=== PATIENT | female | born 1940 | race African-American/Black ===

== ENCOUNTER 2016-09-02 21:07 | Inpatient (IN) | payer MEDICARE, OTHER ==
[~2016-09-02] VITALS: Ht 165.1 cm; Wt 104.5 kg
[~2016-09-02 21:07] MED LIST: ALLO100T PO; AMLO10 PO; BISA10R PR; CARB0.5D16 EACH EYE; CIPR500T2 PO; CRAN450T PO; DIAZ5 PO; LACO100 PO; LEVE250 PO; LOPE2TAB3 PO; NEUR600T PO; SERO50TA PO; SYNT125T PO; TRAZ50TA4 PO
[2016-09-02] MEDS ORDERED: SODIUM CHLORIDE 0.9% FLUSH 10 ML FLUSH IV FLUSH PRN (21:45)
[2016-09-02 21:46] VITALS: BP 152/70; PULSE 75; RESP 12; TEMP 98.2; O2SAT 97
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
[2016-09-02 22:00] VITALS: BP 137/63; PULSE 76; RESP 16; O2SAT 95
[2016-09-02 22:12] LABS: AUTOMATED NEUTROPHIL # 6.5 TH/MM3 (1.8-7.7); BASOPHIL % 0.3 % (0.0-2.0); EOSINOPHIL # 0.1 TH/MM3 (0-0.4); EOSINOPHIL % 1.1 % (0.0-4.0); HEMATOCRIT 40.6 % (35.0-46.0); HEMO FLAGS DIFF FINAL; LYMPH % 21.1 % (9.0-44.0); MEAN CELL VOLUME 90.3 FL (80.0-100.0); MEAN CORPUSCULAR HEMOGLOBIN 31.6 PG (27.0-34.0); MONO % 7.5 % (0.0-8.0); PLATELET COUNT 154 TH/MM3 (150-450); RED BLOOD COUNT 4.49 MIL/MM3 (4.00-5.30); WHITE BLOOD COUNT 9.3 TH/MM3 (4.0-11.0)
--- NOTE | 2016-09-02 22:16 | PD ---
Physical Exam Narrative General: The patient is a well-developed well-nourished female in no acute distress. The patient is drowsy on my arrival to room. The patient reportedly did receive some tramadol for pain prior to arrival. Head and Neck exam: Head is normocephalic atraumatic. Eyes: The patient is uncooperative with extraocular motion testing. Pupils are equal round and reactive to light. Nose: Midline septum with pink mucous membranes Mouth: When attempting to examine the patient's mouth. The patient clenches her lips and mouth shut. Neck: No palpable lymphadenopathy. No nuchal rigidity. No thyromegaly. Cardiovascular: Regular rate and rhythm without murmurs, gallops, or rubs. Lungs: Clear to auscultation bilaterally. No wheezes, rhonchi, or rales. Abdomen: Soft, with tenderness on palpation in the right lower quadrant suprapubic area, no other tenderness on palpation of the other quadrants of the abdomen. No guarding, rebound, or rigidity. Normal bowel sounds are audible. No tenderness on palpation specifically over McBurney's point. Negative [place] sign. Extremities: No clubbing or cyanosis. The patient does have trace pedal edema. 2+ pulses in all 4 extremities. No calf tenderness on palpation. Back: No costovertebral angle tenderness to palpation. Neurologic Exam: Grossly nonfocal. Skin Exam: No rash noted. Intact skin that is warm and dry. Data Data Last Documented VS Vital Signs Date Time Temp Pulse Resp B/P Pulse Ox O2 Delivery O2 Flow Rate FiO2 09/03/16 00:00 73 16 136/66 95 Room Air 09/02/16 21:46 98.2 Orders Type And Screen (09/02/16 21:41) Complete Blood Count With Diff (09/02/16 21:41) Comprehensive Metabolic Panel (09/02/16 21:41) Lipase (09/02/16 21:41) Prothrombin Time / Inr (Pt) (09/02/16 21:41) Act Partial Throm Time (Ptt) (09/02/16 21:41) Urinalysis - C+S If Indicated (09/02/16 21:41) Iv Access Insert/Monitor (09/02/16 21:41) Ecg Monitoring (09/02/16 21:41) Oximetry (09/02/16 21:41) Sodium Chloride 0.9% Flush (Ns Flush) (09/02/16 21:45) Cath For Specimen (09/02/16 21:41) Ct Abd/Pel W/O Iv Contrast (09/02/16 21:41) Admit Order (Ed Use Only) (09/03/16 00:11) Ciprofloxacin 400 Mg Premix (Cipro 400 M (09/03/16 01:00) Metronidazole 500 Mg Inj (Flagyl 500 Mg (09/03/16 02:00) Admit To Inpatient (09/03/16 ) Vital Signs (Adult) Q4H (09/03/16 00:01) Activity Oob With Assistance (09/03/16 00:01) Intake + Output DONG.QSHIFT (09/03/16 00:01) Diet Regular Basic (09/03/16 Breakfast) Sodium Chloride 0.9% Flush (Ns Flush) (09/03/16 00:15) Sodium Chloride 0.9% Flush (Ns Flush) (09/03/16 09:00) Ondansetron Inj (Zofran Inj) (09/03/16 00:15) Comprehensive Metabolic Panel (09/04/16 06:00) Complete Blood Count With Diff (09/04/16 06:00) Pharmacologic Contraindication (09/03/16 00:01) Acetaminophen (Tylenol) (09/03/16 00:15) Acetamin-Hydrocod 325-5 Mg ([place] 5-325 (09/03/16 00:15) Morphine Inj (Morphine Inj) (09/03/16 00:15) Docusate Sodium-Senna (Tiffanie-Colace) (09/03/16 09:00) Magnesium Hydroxide Liq (Milk Of Magnesi (09/03/16 00:15) Sennosides (Senokot) (09/03/16 00:15) Bisacodyl Supp (Dulcolax Supp) (09/03/16 00:15) Lactulose Liq (Lactulose Liq) (09/03/16 00:15) Inpatient Certification (09/03/16 ) Case Management Consult (09/03/16 ) Allopurinol (Zyloprim) (09/03/16 09:00) Amlodipine (Norvasc) (09/03/16 09:00) Diazepam (Valium) (09/03/16 00:15) Gabapentin (Neurontin) (09/03/16 09:00) Lacosamide (Vimpat) (09/03/16 09:00) Levetiracetam (Keppra) (09/03/16 09:00) Levothyroxine (Synthroid) (09/03/16 06:00) Rivastigmine (Exelon) (09/03/16 09:00) Trazodone (Desyrel) (09/03/16 21:00) Quetiapine (Seroquel) (09/03/16 09:00) Labs Laboratory Tests Test 09/02/16 09/02/16 21:50 22:32 White Blood Count 9.3 TH/MM3 Red Blood Count 4.49 MIL/MM3 Hemoglobin 14.2 GM/DL Hematocrit 40.6 % Mean Corpuscular Volume 90.3 FL Mean Corpuscular Hemoglobin 31.6 PG Mean Corpuscular Hemoglobin 35.0 % Concent Red Cell Distribution Width 15.0 % Platelet Count 154 TH/MM3 Mean Platelet Volume 8.3 FL Neutrophils (%) (Auto) 70.0 % Lymphocytes (%) (Auto) 21.1 % Monocytes (%) (Auto) 7.5 % Eosinophils (%) (Auto) 1.1 % Basophils (%) (Auto) 0.3 % Neutrophils # (Auto) 6.5 TH/MM3 Lymphocytes # (Auto) 2.0 TH/MM3 Monocytes # (Auto) 0.7 TH/MM3 Eosinophils # (Auto) 0.1 TH/MM3 Basophils # (Auto) 0.0 TH/MM3 CBC Comment DIFF FINAL Differential Comment Prothrombin Time 10.7 SEC Prothromb Time International 1.0 RATIO Ratio Activated Partial 28.7 SEC Thromboplast Time Sodium Level 136 MEQ/L Potassium Level 4.4 MEQ/L Chloride Level 103 MEQ/L Carbon Dioxide Level 26.6 MEQ/L Anion Gap 6 MEQ/L Blood Urea Nitrogen 25 MG/DL Creatinine 1.85 MG/DL Estimat Glomerular Filtration 32 ML/MIN Rate Random Glucose 149 MG/DL Calcium Level 8.1 MG/DL Total Bilirubin 0.4 MG/DL Aspartate Amino Transf 18 U/L (AST/SGOT) Alanine Aminotransferase 14 U/L (ALT/SGPT) Alkaline Phosphatase 77 U/L Total Protein 8.1 GM/DL Albumin 3.3 GM/DL Lipase 99 U/L Blood Type O POSITIVE Antibody Screen NEGATIVE Urine Color YELLOW Urine Turbidity CLEAR Urine pH 5.5 Urine Specific [place] 1.015 Urine Protein NEG mg/dL Urine Glucose (UA) NEG mg/dL Urine Ketones NEG mg/dL Urine Occult Blood SMALL Urine Nitrite NEG Urine Bilirubin NEG Urine Urobilinogen LESS THAN 2.0 MG/DL Urine Leukocyte Esterase NEG Urine RBC 3 /hpf Urine WBC 1 /hpf Urine Squamous Epithelial 2 /hpf Cells Urine Mucus FEW /lpf Microscopic Urinalysis Comment CULT NOT INDICATED MDM Medical Record Reviewed: Yes Supervised Visit with DONTAE: Yes Interpretation(s) Last Impressions Abdomen/Pelvis CT 09/02/162140 Signed Impressions: Service Date/Time: Friday, September 02, 2016 22:57 - CONCLUSION: 1. Abnormal wall thickening and mild surrounding inflammatory change involving the descending colon and proximal sigmoid colon. Findings are characteristic of a colitis. 2. 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 3. There is a 2.2 cm lesion in the lower pole right kidney. It does not meet criteria for a cyst on this examination and is incompletely characterized. This could represent a hemorrhagic/proteinaceous cyst or a solid renal neoplasm. Ike Peralta MD Narrative Course I, Dr. Barragan, have reviewed the advance practice practitioner's documentation and am in agreement, met with the patient face to face, made the diagnosis, and the medical decision making was done by me. The patient was initially evaluated by Corona. Please see his complete history and physical. *My assessment and Findings: The patient is a 76-year-old female who was noted by her assisted living facility to have blood in her diaper yesterday. The patient was sent in for evaluation and treatment today. The patient on arrival is noted to be drowsy, however she did reportedly received tramadol for pain prior to arrival. The patient according to the alf record has a history of dementia. She is normally at baseline oriented only to person. The patient was evaluated initially by Corona. He did do a rectal examination that was grossly positive for blood. During the course of the patients emergency department visit, the patients history, examination, and differential diagnosis were reviewed with the patient. The patient had IV access obtained and blood work sent for analysis. The patient was placed on a dye box operator with oximetry and blood pressure monitoring. The patient was typed and crossmatched for blood administration if necessary. The patient's case was checked out to me at the conclusion of Corona shift. Patient was pending CT scan of the abdomen and pelvis results. The patients laboratory studies were reviewed and remarkable for a CBC that is within normal limits, CMP is remarkable for a BUN of 25, creatinine 1.85 in a patient with a history of similar renal insufficiency, glucose 149, calcium 8.1 , albumin 3.3, lipase 99, PT 10.7, PTT 28.7, urinalysis shows small occult blood , otherwise unremarkable with an RBC of 3 Radiology studies were reviewed and remarkable for a CT scan of the abdomen and pelvis that shows abnormal wall thickening and mild surrounding inflammatory changes involving the descending colon and proximal sigmoid colon findings are consistent for colitis. The patients results were discussed with the patient, including the plan of care. I explained that further testing and/ or monitoring is indicated based on the patients history, examination, and/ or laboratory findings. Therefore, I recommended admission for additional evaluation. The patient expressed understanding and was agreeable with this plan. The patient was admitted to the hospital in stable condition and sent to a bed under the care of the [facility]. Physician Communication Physician Communication The patient's case is discussed with Dr. Emmanuel who did agree to admit the patient for further evaluation and treatment at this time. Diagnosis Primary Impression: Colitis Additional Impression: GI bleed Qualified Code: K92.2 - Gastrointestinal hemorrhage, unspecified gastrointestinal hemorrhage type Admitting Information Admitting Physician Requests: Admit Sandra Barragan MD Sep 02, 2016 22:16
[2016-09-02 22:33] LABS: APTT (PATIENT) 28.7 SEC (24.3-30.1); PROTHROMBIN TIME - PATIENT 10.7 SEC (9.8-11.6)
[2016-09-02 22:34] LABS: ALT (GPT) 14 U/L (10-53)
[2016-09-02 22:35] LABS: ANION GAP 6 MEQ/L (5-15); AST (GOT) 18 U/L (15-37); BICARBONATE 26.6 MEQ/L (21.0-32.0); BLOOD UREA NITROGEN 25 MG/DL (7-18); CHLORIDE 103 MEQ/L (98-107); GLOMERULAR FILTRATION RATE 32 ML/MIN (>89); SODIUM (NA) 136 MEQ/L (136-145)
[2016-09-02 22:37] LABS: ALKALINE PHOSPHATASE 77 U/L (45-117); TOTAL BILIRUBIN ADULT 0.4 MG/DL (0.2-1.0)
[2016-09-02 22:38] VITALS: RESP 16; O2SAT 95
[2016-09-02 22:39] LABS: POTASSIUM 4.4 MEQ/L (3.5-5.1)
[2016-09-02 22:50] LABS: BLOOD, URINE SMALL (NEG); GLUCOSE,URINE NEG (NEG); KETONE, URINE NEG (NEG); MUCUS URINE FEW /lpf (OCC); NITRITE,URINE NEG (NEG); PH, URINE 5.5 (5.0-8.5); SQUAMOUS EPITHELIAL CELL URINE 2 /hpf (0-5); URINE COLOR YELLOW (YELLW/STRAW)
[2016-09-02 22:51] LABS: COMMENT (UR) CULT NOT INDICATED; CULTURE IF INDICATED CULT NOT INDICATED
[2016-09-02] MEDS ORDERED: DIAZ5TAB PO (22:54)
[2016-09-02] MEDS ORDERED: ALLO100T PO (22:54)
[2016-09-02] MEDS ORDERED: ROBIDM5S PO (22:54)
[2016-09-02] MEDS ORDERED: ZOFR4TAB PO (22:54)
[2016-09-02] MEDS ORDERED: PROT0.1O TOPICAL (22:54)
[2016-09-02] MEDS ORDERED: HYDR-3133 PO (22:54)
[2016-09-02] MEDS ORDERED: AMLO10TA2 PO (22:54)
[2016-09-02] MEDS ORDERED: RIVA1.5C PO (22:54)
[2016-09-02] MEDS ORDERED: LEVE250T5 PO (22:54)
[2016-09-02] MEDS ORDERED: LACO100 PO (22:54)
[2016-09-02] MEDS ORDERED: CRAN1TAB5 PO (22:54)
[2016-09-02] MEDS ORDERED: QUET5TAB PO (22:54)
[2016-09-02] MEDS ORDERED: GENTDRO EACH EYE (22:54)
[2016-09-02] MEDS ORDERED: LEVO.125 PO (22:54)
[2016-09-02] MEDS ORDERED: DOCU100C PO (22:54)
[2016-09-02] MEDS ORDERED: TRAZ50TA12 PO (22:54)
[2016-09-02] MEDS ORDERED: GABA600T PO (22:54)
--- NOTE | 2016-09-02 23:24 | RADRPT ---
EXAM DATE/TIME: 09/02/2016 22:57 [facility] COMPARISON: No previous studies available for comparison. INDICATIONS : Blood in stool. ORAL CONTRAST: No oral contrast ingested. RADIATION DOSE: 22.16 CTDIvol (mGy) MEDICAL HISTORY : Alzheimer's Dementia. CVA. Hypertension. Diabetes. SURGICAL HISTORY : Hysterectomy. Jaw surgery. ENCOUNTER: Initial ACUITY: 1 day PAIN SCALE: Non-responsive LOCATION: [facility] TECHNIQUE: Volumetric scanning of the abdomen and pelvis was performed. Using automated exposure control and ad justment of the mA and/or kV according to patient size, radiation dose was kept as low as reasonably achievable to obtain optimal diagnostic quality images. DICOM format image data is available electro nically for review and comparison. FINDINGS: Examination quality is degraded by patient arm position and respiratory motion artifact. LOWER LUNGS: The visualized lower lungs are clear. There is a small pericardial effusion. LIVER: Homogeneous density without lesion. There is no dilation of the biliary tree. No calcified gallston es. SPLEEN: Normal size without lesion. PANCREAS: Within normal limits. KIDNEYS: Kidneys are at the lower limits for normal in size. There is a hyperdense lesion at the lower pole th e right kidney measuring 2.2 cm. A 3.7 cm simple appearing cyst is present at the lower pole the left kidney. No hydronephrosis or stone is identified. ADRENAL GLANDS: Within normal limits. VASCULAR: There is moderate atherosclerotic disease with infrarenal aortic aneurysm measuring up to 3.2 cm. BOWEL/MESENTERY: The stomach and small bowel demonstrate no acute abnormality. There is sigmoid diverticulosis and th e descending and proximal sigmoid colon demonstrates suggestion of wall thickening and pericolonic in flammatory change. There is no free intraperitoneal air or fluid. ABDOMINAL WALL: Within normal limits. RETROPERITONEUM: There is no lymphadenopathy. BLADDER: No wall thickening or mass. REPRODUCTIVE: Uterus is absent. INGUINAL: There is no lymphadenopathy or hernia. MUSCULOSKELETAL: There are degenerative changes of the lumbar spine. CONCLUSION: 1. Abnormal wall thickening and mild surrounding inflammatory change involving the descending colon a nd proximal sigmoid colon. Findings are characteristic of a colitis. 2. 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 3. There is a 2.2 cm lesion in the lower pole right kidney. It does not meet criteria for a cyst on t his examination and is incompletely characterized. This could represent a hemorrhagic/proteinaceous c yst or a solid renal neoplasm. Ike Peralta MD on September 02, 2016 at 23:18 Board Certified Radiologist. This report was verified electronically.
[2016-09-03] VITALS (7 sets, daily range): BP systolic 107–136; BP diastolic 56–73; PULSE 73–84; RESP 16–24; TEMP 97.3–98.8; O2SAT 94–98
[2016-09-03] MEDS ORDERED: SODIUM CHLORIDE 0.9% FLUSH 10 ML FLUSH IV FLUSH PRN (00:15)
[2016-09-03] MEDS ORDERED: ACETAMINOPHEN 325 MG TAB PO PRN (00:15)
[2016-09-03] MEDS ORDERED: LACTULOSE SYRUP 20 GM/30 ML CUP PO PRN (00:15)
[2016-09-03] MEDS ORDERED: ONDANSETRON HCL 4 MG/2 ML VIAL IVP PRN (00:15)
[2016-09-03] MEDS ORDERED: BISACODYL 10 MG SUPP RECTAL PRN (00:15)
[2016-09-03] MEDS ORDERED: MAGNESIUM HYDROXIDE SUSP 30 ML CUP PO PRN (00:15)
[2016-09-03] MEDS ORDERED: SENNOSIDES 8.6 MG TAB PO PRN (00:15)
[2016-09-03] MEDS ORDERED: ACETAMINOPHEN/HYDROcodone 325 MG/5 MG TAB PO PRN (00:15)
[2016-09-03] MEDS ORDERED: MORPHINE SULFATE 4 MG/ML INJ IV PRN (00:15)
[2016-09-03] MEDS: metroNIDAZOLE 500 MG INJ 100 ML IV SCH ×3 (00:46→17:31)
[2016-09-03] MEDS: CIPROFLOXACIN 400 MG PREMIX 200 ML IV SCH ×2 (00:46→13:19)
--- NOTE | 2016-09-03 01:53 | HHI.HP ---
[facility] Primary Care Physician Bharat Albrecht MD Admission Diagnosis GI Bleed, colitis Diagnoses: (1) BRBPR (bright red blood per rectum) Diagnosis: Principal (2) Colitis Diagnosis: Principal (3) Seizure Diagnosis: Principal (4) Dementia Diagnosis: Principal Travel History International Travel<30 Days: No Contact w/Intl Traveler <30 Da: No Traveled to Known Affected Are: No History of Present Illness This is a 76-year-old female with a PMH of Dementia, HTN, Hyperlipidemia, Seizure Disorder and h/o CVA who was sent to the ER from [facility] for episode of BRBPR. Per report, pt was having her diaper changed when staff noted one episode of BRBPR. No h/o GI Bleed, not on anticoagulation. Pt poor historian, however no complaints at this time. On arrival, BP 152/70, HR 75, O2 sat 97% on RA, Afebrile. CBC unremarkable, Hemoglobin 14.2. Creatinine 1.85, previously 1.62 on 05/07/15. INR 1.0. UA negative. Hemoccult +. CT Abd/ Pelvis w/ evidence of colitis. Review of Systems Except as stated in HPI: all other systems reviewed are Neg ROS: 14 point review of systems otherwise negative. Past Family Social History Past Medical History PMH: Dementia, HTN, Hyperlipidemia, Seizure Disorder and h/o CVA Past Surgical History PAST SURGICAL HISTORY: Left Knee Replacement, Jaw Surgery, Hysterectomy Allergies: Coded Allergies: Keflex (Verified Allergy, Mild, ITCHING, 09/02/16) Sulfa (Verified Allergy, Mild, UNKNOWN, 09/02/16) Family History PAST FAMILY HISTORY: Reviewed. No h/o DM or CAD Social History PAST SOCIAL HISTORY: Negative for alcohol, tobacco or drugs. Physical Exam Vital Signs Vital Signs Date Time Temp Pulse Resp B/P Pulse Ox O2 Delivery O2 Flow Rate FiO2 09/03/16 01:22 97.9 78 18 132/67 97 09/03/16 00:00 73 16 136/66 95 Room Air 09/02/16 22:38 16 95 Room Air 09/02/16 22:00 76 16 137/63 95 Room Air 09/02/16 21:46 98.2 75 12 152/70 97 Physical Exam PE: GENERAL: Elderly black female in no acute distress, pleasantly demented. HEENT: PERRLA, EOMI. No scleral icterus or conjunctival pallor. No lid lag or facial droop. CARDIOVASCULAR: Regular rate and rhythm. No obvious murmurs to auscultation. No chest tenderness to palpation. RESPIRATORY: No obvious rhonchi or wheezing. Clear to auscultation. Breath sounds equal bilaterally. GASTROINTESTINAL: Abdomen soft, mild generalized tenderness to palpation, nondistended. BS normal. MUSCULOSKELETAL: Extremities without clubbing, cyanosis, or edema. No obvious deformities. NEUROLOGICAL: Awake, alert, opens eyes to name, answers minimal questions. No focal neurologic deficits. Moving both upper and lower extremities spontaneously. Laboratory Laboratory Tests Test 09/02/16 09/02/16 21:50 22:32 White Blood Count 9.3 Red Blood Count 4.49 Hemoglobin 14.2 Hematocrit 40.6 Mean Corpuscular Volume 90.3 Mean Corpuscular Hemoglobin 31.6 Mean Corpuscular Hemoglobin 35.0 Concent Red Cell Distribution Width 15.0 Platelet Count 154 Mean Platelet Volume 8.3 Neutrophils (%) (Auto) 70.0 Lymphocytes (%) (Auto) 21.1 Monocytes (%) (Auto) 7.5 Eosinophils (%) (Auto) 1.1 Basophils (%) (Auto) 0.3 Neutrophils # (Auto) 6.5 Lymphocytes # (Auto) 2.0 Monocytes # (Auto) 0.7 Eosinophils # (Auto) 0.1 Basophils # (Auto) 0.0 CBC Comment DIFF FINAL Differential Comment Prothrombin Time 10.7 Prothromb Time International 1.0 Ratio Activated Partial 28.7 Thromboplast Time Sodium Level 136 Potassium Level 4.4 Chloride Level 103 Carbon Dioxide Level 26.6 Anion Gap 6 Blood Urea Nitrogen 25 Creatinine 1.85 Estimat Glomerular Filtration 32 Rate Random Glucose 149 Calcium Level 8.1 Total Bilirubin 0.4 Aspartate Amino Transf 18 (AST/SGOT) Alanine Aminotransferase 14 (ALT/SGPT) Alkaline Phosphatase 77 Total Protein 8.1 Albumin 3.3 Lipase 99 Blood Type O POSITIVE Antibody Screen NEGATIVE Urine Color YELLOW Urine Turbidity CLEAR Urine pH 5.5 Urine Specific [place] 1.015 Urine Protein NEG Urine Glucose (UA) NEG Urine Ketones NEG Urine Occult Blood SMALL Urine Nitrite NEG Urine Bilirubin NEG Urine Urobilinogen LESS THAN 2.0 Urine Leukocyte Esterase NEG Urine RBC 3 Urine WBC 1 Urine Squamous Epithelial 2 Cells Urine Mucus FEW Microscopic Urinalysis Comment CULT NOT INDICATED Result Diagram: 09/02/16214909/02/162149 Assessment and Plan Problem List: (1) BRBPR (bright red blood per rectum) ICD Code: K62.5 Status: Acute (2) Colitis ICD Code: K52.9 Status: Acute (3) Seizure ICD Code: R56.9 Status: Chronic (4) Dementia ICD Code: F03.90 Status: Chronic Assessment and Plan A/P: 1. BRBPR: episode of BRBPR noted by staff at [facility], no h/o GI Bleed, not on anticoagulation. Hemoccult+ on exam. Hgb 14, hemodynamically stable, likely secondary to colitis/hemorrhoids. Will monitor Hgb/Hct, check repeat labs in am. 2. Colitis: CT Abd/Pelvis w/ abnormal wall thickening and surrounding inflammatory changes and descending colon and proximal sigmoid colon, consistent with colitis, images reviewed by me. Will start on treatment w/ Cipro/Flagyl. Analgesics/antiemetics as needed. 3. Seizure Disorder: Stable. No reported seizure activity. Resume home medications. 4. Dementia: At baseline per Daughter. Resume home medications. 5. DVT Prophylaxis: SCD/Teds. 6. Social work for d/c planning as needed 7. Case discussed w/ ER physician at length. Physician Certification 2 Midnight Certification Type: Admission for Inpatient Services Order for Inpatient Services The services are ordered in accordance with Medicare regulations or non- Medicare payer requirements, as applicable. In the case of services not specified as inpatient-only, they are appropriately provided as inpatient services in accordance with the 2-midnight benchmark. Estimated LOS (days): 2 days is the estimated time the patient will need to remain in the hospital, assuming treatment plan goals are met and no additional complications. Post-Hospital Plan: Not yet determined Fiona Emmanuel MD Sep 03, 2016 01:53
[2016-09-03] MEDS: LACOSAMIDE 100 MG TAB PO SCH ×3 (08:45→17:30)
[2016-09-03] MEDS: SODIUM CHLORIDE 0.9% FLUSH 10 ML FLUSH IV FLUSH SCH ×2 (08:46→20:38)
[2016-09-03] MEDS: DOCUSATE SODIUM 50 MG/SENNA 8.6 MG TAB PO SCH ×2 (08:46→20:38)
[2016-09-03] MEDS: RIVASTIGMINE TARTRATE 1.5 MG CAP PO SCH ×2 (08:46→17:30)
[2016-09-03] MEDS: ALLOPURINOL 100 MG TAB PO SCH (08:46)
[2016-09-03] MEDS: levETIRAcetam 250 MG TAB PO SCH ×4 (08:46→20:38)
[2016-09-03] MEDS: LEVOTHYROXINE SODIUM 125 MCG TAB PO SCH (08:46)
[2016-09-03] MEDS: QUEtiapine FUMARATE 25 MG TAB PO SCH ×3 (08:46→17:30)
[2016-09-03] MEDS ORDERED: GABAPENTIN 300 MG CAP PO SCH (09:00)
--- NOTE | 2016-09-03 16:34 | HHI.PR ---
Addendum to Inpatient Note Addendum Reason: Additional Documentation Additional Information Patient denies abdominal pain nausea vomiting. She is awake and alert, abdomen is soft, nontender, nondistended. By report per rectum secondary to colitis seen on CT abdomen and pelvis. Continue IV ciprofloxacin and Flagyl. As per daughter wasn't at bedside, no diarrhea previously. Patient has had problems with constipation instead. We'll consult GI for further recommendations. Beto Randle MD Sep 03, 2016 16:34
[2016-09-03] MEDS: traZODone HCL 50 MG TAB PO SCH (20:38)
[2016-09-04] VITALS (7 sets, daily range): BP systolic 122–182; BP diastolic 61–77; PULSE 74–80; RESP 18–20; TEMP 97.5–98.4; O2SAT 95–99
[2016-09-04] MEDS: CIPROFLOXACIN 400 MG PREMIX 200 ML IV SCH ×2 (00:31→14:23)
[2016-09-04] MEDS: metroNIDAZOLE 500 MG INJ 100 ML IV SCH ×3 (01:58→17:01)
[2016-09-04] MEDS: LEVOTHYROXINE SODIUM 125 MCG TAB PO SCH (05:01)
[2016-09-04] MEDS: SODIUM CHLORIDE 0.9% FLUSH 10 ML FLUSH IV FLUSH SCH ×2 (09:00→21:43)
[2016-09-04] MEDS: RIVASTIGMINE TARTRATE 1.5 MG CAP PO SCH ×2 (09:40→17:00)
[2016-09-04] MEDS: DOCUSATE SODIUM 50 MG/SENNA 8.6 MG TAB PO SCH ×2 (09:40→21:43)
[2016-09-04] MEDS: ALLOPURINOL 100 MG TAB PO SCH (09:40)
[2016-09-04] MEDS: GABAPENTIN 300 MG CAP PO SCH (09:40)
[2016-09-04] MEDS: LACOSAMIDE 100 MG TAB PO SCH ×3 (09:41→17:00)
[2016-09-04] MEDS: levETIRAcetam 250 MG TAB PO SCH ×4 (09:41→21:43)
[2016-09-04] MEDS: QUEtiapine FUMARATE 25 MG TAB PO SCH ×3 (09:41→17:00)
[2016-09-04 11:46] LABS: AUTOMATED NEUTROPHIL # 5.6 TH/MM3 (1.8-7.7); BASOPHIL % 0.2 % (0.0-2.0); EOSINOPHIL # 0.1 TH/MM3 (0-0.4); EOSINOPHIL % 1.3 % (0.0-4.0); HEMATOCRIT 40.3 % (35.0-46.0); HEMO FLAGS DIFF FINAL; LYMPH % 18.6 % (9.0-44.0); LYMPHOCYTE # 1.4 TH/MM3 (1.0-4.8); MEAN CELL VOLUME 91.4 FL (80.0-100.0); MEAN CORPUSCULAR HEMOGLOBIN 30.8 PG (27.0-34.0); MEAN CORPUSCULAR HGB CONC 33.7 % (32.0-36.0); MONO % 4.4 % (0.0-8.0); NEUT % 75.5 % (16.0-70.0); PLATELET COUNT 148 TH/MM3 (150-450); RED BLOOD COUNT 4.41 MIL/MM3 (4.00-5.30); RED CELL DISTRIBUTION WIDTH 14.9 % (11.6-17.2); WHITE BLOOD COUNT 7.5 TH/MM3 (4.0-11.0)
[2016-09-04 12:15] LABS: ANION GAP 6 MEQ/L (5-15); AST (GOT) 14 U/L (15-37); BLOOD UREA NITROGEN 21 MG/DL (7-18); CHLORIDE 104 MEQ/L (98-107); GLOMERULAR FILTRATION RATE 34 ML/MIN (>89); POTASSIUM 4.3 MEQ/L (3.5-5.1); SODIUM (NA) 138 MEQ/L (136-145)
--- NOTE | 2016-09-04 12:25 | HHI.PR ---
Objective Vitals Vital Signs Date Time Temp Pulse Resp B/P Pulse Ox O2 Delivery O2 Flow Rate FiO2 09/04/16 07:25 98.3 76 20 143/65 99 09/04/16 03:56 97.5 74 18 122/61 98 09/04/16 00:42 97.9 77 18 123/62 96 09/03/16 19:21 98.8 84 18 116/73 96 09/03/16 16:48 98.5 80 18 134/66 94 I/O 09/03/16 09/03/16 09/03/16 09/04/16 09/04/16 09/04/16 07:00 15:00 23:00 07:00 15:00 23:00 Intake Total 980 ml Balance 980 ml Intake Oral 480 ml IV Total 500 ml # Voids 3 Result Diagram: 09/04/16 1034 09/02/16 2150 A/P Problem List: (1) BRBPR (bright red blood per rectum) ICD Code: K62.5 Status: Acute (2) Colitis ICD Code: K52.9 Status: Acute (3) Seizure ICD Code: R56.9 Status: Chronic (4) Dementia ICD Code: F03.90 Status: Chronic Beto Randle MD Sep 04, 2016 12:25
[2016-09-04 12:28] LABS: ALKALINE PHOSPHATASE 66 U/L (45-117); ALT (GPT) 15 U/L (10-53); TOTAL BILIRUBIN ADULT 0.3 MG/DL (0.2-1.0)
--- NOTE | 2016-09-04 12:42 | HHI.PR ---
Subjective Remarks denies abdominal pain, nausea or vomiting denies fevers or chills Vital signs stable Hemoglobin stable Objective Vitals Vital Signs Date Time Temp Pulse Resp B/P Pulse Ox O2 Delivery O2 Flow Rate FiO2 09/04/16 12:25 79 20 182/77 97 09/04/16 07:25 98.3 76 20 143/65 99 09/04/16 03:56 97.5 74 18 122/61 98 09/04/16 00:42 97.9 77 18 123/62 96 09/03/16 19:21 98.8 84 18 116/73 96 09/03/16 16:48 98.5 80 18 134/66 94 I/O 09/03/16 09/03/16 09/03/16 09/04/16 09/04/16 09/04/16 06:59 14:59 22:59 06:59 14:59 22:59 Intake Total 980 ml Balance 980 ml Intake Oral 480 ml IV Total 500 ml # Voids 3 Result Diagram: 09/04/16 1034 09/04/16 1034 Imaging Last Impressions Abdomen/Pelvis CT 09/02/161 Signed Impressions: Service Date/Time: Friday, September 02, 2016 22:57 - CONCLUSION: 1. Abnormal wall thickening and mild surrounding inflammatory change involving the descending colon and proximal sigmoid colon. Findings are characteristic of a colitis. 2. 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 3. There is a 2.2 cm lesion in the lower pole right kidney. It does not meet criteria for a cyst on this examination and is incompletely characterized. This could represent a hemorrhagic/proteinaceous cyst or a solid renal neoplasm. Ike Peralta MD Objective Remarks Awake and alert and S1-S2 present, regular rate and rhythm Clear lungs bilaterally Abdomen soft, obese, nontender, nondistended, No edema in bilateral lower extremities Procedures None Medications and IVs Current Medications Medications (Trade) Dose Ordered Sig/Lola Route Start Time Stop Time Status Last Admin Ciprofloxacin/ Dextrose 200 ml @ 200 mls/hr Q12H IV 09/03/16 01:00 09/04/16 00:31 (Flagyl 500 Mg Inj) 100 ml @ 100 mls/hr Q8H IV 09/03/16 02:00 09/04/16 01:58 (NS Flush) 2 ml UNSCH PRN IV FLUSH 09/03/16 00:15 (NS Flush) 2 ml BID IV FLUSH 09/03/16 09:00 09/03/16 20:38 (Zofran Inj) 4 mg Q6H PRN IVP 09/03/16 00:15 (Tylenol) 650 mg Q6H PRN PO 09/03/16 00:15 ([place] 5-325 Mg) 1 tab Q4H PRN PO 09/03/16 00:15 (Morphine Inj) 2 mg Q3H PRN IV 09/03/16 00:15 (Tiffanie-Colace) 1 tab BID PO 09/03/16 09:00 09/04/16 09:40 (Milk Of Magnesia Liq) 30 ml Q12H PRN PO 09/03/16 00:15 (Senokot) 17.2 mg Q12H PRN PO 09/03/16 00:15 (Dulcolax Supp) 10 mg DAILY PRN RECTAL 09/03/16 00:15 (Lactulose Liq) 30 ml DAILY PRN PO 09/03/16 00:15 (Zyloprim) 100 mg DAILY PO 09/03/16 09:00 09/04/16 09:40 (Norvasc) 10 mg DAILY PO 09/03/16 09:00 09/04/16 09:41 (Valium) 5 mg BID PRN PO 09/03/16 00:15 (Vimpat) 100 mg TID PO 09/03/16 09:00 09/04/16 09:41 (Keppra) 250 mg QID PO 09/03/16 09:00 09/04/16 09:41 (Synthroid) 125 mcg DAILY@06 PO 09/03/16 06:00 09/04/16 05:01 (Exelon) 1.5 mg BIDPC PO 09/03/16 09:00 09/04/16 09:40 (Desyrel) 50 mg HS PO 09/03/16 21:00 09/03/16 20:38 (SEROquel) 50 mg TID PO 09/03/16 09:00 09/04/16 09:41 (Neurontin) 600 mg DAILY PO 09/04/16 09:00 09/04/16 09:40 A/P Problem List: (1) BRBPR (bright red blood per rectum) ICD Code: K62.5 Status: Acute (2) Colitis ICD Code: K52.9 Status: Acute (3) Seizure ICD Code: R56.9 Status: Chronic (4) Dementia ICD Code: F03.90 Status: Chronic Assessment and Plan 1. BRBPR: episode of BRBPR noted by staff at [facility], no h/o GI Bleed, not on anticoagulation. Hemoccult+ on exam. Hgb 14, hemodynamically stable, likely secondary to colitis/hemorrhoids. Will monitor Hgb/Hct, which has been stable. 09/04 hemoglobin has been stable. Continue to monitor H&H and consult gastroenterology. 2. Colitis: CT Abd/Pelvis w/ abnormal wall thickening and surrounding inflammatory changes and descending colon and proximal sigmoid colon, consistent with colitis, images reviewed by me. Continue treatment with Cipro/ Flagyl. Analgesics/antiemetics as needed. 3. Seizure Disorder: Stable. No reported seizure activity. Continue home medications which include Vimpat, Keppra. 4. Dementia: At baseline per Daughter. The new home medications which include Seroquel, trazodone. 5. Hypertension: BP seems to be stable. Continue amlodipine. 6. Hypothyroidism: Continue levothyroxine. 5. DVT Prophylaxis: SCD/Teds. Discharge Planning Chest pending GI evaluation and clearance. Beto Randle MD Sep 04, 2016 12:41
--- NOTE | 2016-09-04 13:45 | PD.CONS ---
HPI History of Present Illness This is a 76 year old female with hx dementia, HTN, seizures, CVA sent from [facility] for 1 x episode BRBPR seen during a diaper change. NO prior hx GIB. No n/v, abd pain, diarrhea, weight loss, reflux. She hasnt had BM in 3d but daughter says she usually goes after every meal. Hx obtained from daughter. Daughter says pt had colonoscopy in [place] possibly 1999, cannot recall findings. (Lindsay Sarmiento) PFSH Past Medical History PMH: Dementia, HTN, Hyperlipidemia, Seizure Disorder and h/o CVA Past Surgical History PAST SURGICAL HISTORY: Left Knee Replacement, Jaw Surgery, Hysterectomy (Lindsay Sarmiento) Coded Allergies: Keflex (Verified Allergy, Mild, ITCHING, 09/02/16) Sulfa (Verified Allergy, Mild, UNKNOWN, 09/02/16) Family History PAST FAMILY HISTORY: Reviewed. No h/o DM or CAD Social History PAST SOCIAL HISTORY: Negative for alcohol, tobacco or drugs. (Lindsay Sarmiento) Review of Systems ROS pt demented, noncontributory (Lindsay Sarmiento) GI Exam Vitals I&O Vital Signs Date Time Temp Pulse Resp B/P Pulse Ox O2 Delivery O2 Flow Rate FiO2 09/04/16 12:25 79 20 182/77 97 09/04/16 07:25 98.3 76 20 143/65 99 09/04/16 03:56 97.5 74 18 122/61 98 09/04/16 00:42 97.9 77 18 123/62 96 09/03/16 19:21 98.8 84 18 116/73 96 09/03/16 16:48 98.5 80 18 134/66 94 I/O 09/03/16 09/03/16 09/03/16 09/04/16 09/04/16 09/04/16 07:00 15:00 23:00 07:00 15:00 23:00 Intake Total 980 ml Balance 980 ml Intake Oral 480 ml IV Total 500 ml # Voids 3 Imaging Last Impressions Abdomen/Pelvis CT 09/02/16 6301 Signed Impressions: Service Date/Time: Friday, September 02, 2016 22:57 - CONCLUSION: 1. Abnormal wall thickening and mild surrounding inflammatory change involving the descending colon and proximal sigmoid colon. Findings are characteristic of a colitis. 2. 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 3. There is a 2.2 cm lesion in the lower pole right kidney. It does not meet criteria for a cyst on this examination and is incompletely characterized. This could represent a hemorrhagic/proteinaceous cyst or a solid renal neoplasm. Ike Peralta MD Laboratory Test 09/04/16 10:34 White Blood Count 7.5 TH/MM3 Red Blood Count 4.41 MIL/MM3 Hemoglobin 13.6 GM/DL Hematocrit 40.3 % Mean Corpuscular Volume 91.4 FL Mean Corpuscular Hemoglobin 30.8 PG Mean Corpuscular Hemoglobin 33.7 % Concent Red Cell Distribution Width 14.9 % Platelet Count 148 TH/MM3 Mean Platelet Volume 8.4 FL Neutrophils (%) (Auto) 75.5 % Lymphocytes (%) (Auto) 18.6 % Monocytes (%) (Auto) 4.4 % Eosinophils (%) (Auto) 1.3 % Basophils (%) (Auto) 0.2 % Neutrophils # (Auto) 5.6 TH/MM3 Lymphocytes # (Auto) 1.4 TH/MM3 Monocytes # (Auto) 0.3 TH/MM3 Eosinophils # (Auto) 0.1 TH/MM3 Basophils # (Auto) 0.0 TH/MM3 CBC Comment DIFF FINAL Differential Comment Sodium Level 138 MEQ/L Potassium Level 4.3 MEQ/L Chloride Level 104 MEQ/L Carbon Dioxide Level 28.0 MEQ/L Anion Gap 6 MEQ/L Blood Urea Nitrogen 21 MG/DL Creatinine 1.77 MG/DL Estimat Glomerular Filtration 34 ML/MIN Rate Random Glucose 157 MG/DL Calcium Level 8.4 MG/DL Total Bilirubin 0.3 MG/DL Aspartate Amino Transf 14 U/L (AST/SGOT) Alanine Aminotransferase 15 U/L (ALT/SGPT) Alkaline Phosphatase 66 U/L Total Protein 8.0 GM/DL Albumin 3.2 GM/DL Physical Examination HEENT: PERRL; atraumatic; no jaundice. CHEST: CTA CARDIAC: RRR +murmur ABDOMEN: Soft, nondistended, nontender; no hepatosplenomegaly; bowel sounds are present in all four quadrants. EXTREMITIES: No clubbing, cyanosis, or edema. SKIN: Normal; no rash; no jaundice. ASSET ANALYST: alert, oriented to self only (Lindsay Sarmiento) Assessment and Plan Plan ASSESSMENT - BRBPR - 1 x episode BRBPR seen at [facility] during diaper change. No black tarry stool, hx prior GIB. Pt poss had colonoscopy in [place] in 1999, no details provided. no anemia at this time. D/w daughter Shereen who is POA, agreeable to colonoscopy. PLAN - colonoscopy - obtain consents - clears - NPO after midnight - monitor HH - further recommendations to follow This pt seen by myself and Dr Bedoya and this note is written on his behalf ( Lindsay Sarmiento) Physician Comments Patient seen and examined Agree with above Continue with current supportive care Monitor labs Plan for colonoscopy tomorrow (Kevin Bedoya MD) Lindsay Sarmiento Sep 04, 2016 13:45 Kevin Bedoya MD Sep 04, 2016 22:28
[2016-09-04] MEDS ORDERED: PEG (High)/E-LYTE SOLN 4000 ML BTL PO ONE (16:00)
[2016-09-04] MEDS: traZODone HCL 50 MG TAB PO SCH (21:43)
[2016-09-05] VITALS (7 sets, daily range): BP systolic 131–153; BP diastolic 63–75; PULSE 70–89; RESP 17–21; TEMP 95.2–98.4; O2SAT 94–99
[2016-09-05] MEDS: metroNIDAZOLE 500 MG INJ 100 ML IV SCH ×3 (03:07→19:14)
[2016-09-05] MEDS: CIPROFLOXACIN 400 MG PREMIX 200 ML IV SCH ×2 (03:08→18:27)
[2016-09-05] MEDS: LEVOTHYROXINE SODIUM 125 MCG TAB PO SCH (06:41)
[2016-09-05] MEDS ORDERED: PROPOFOL 200 MG/20 ML AMP IV PUSH ONE (10:08)
--- NOTE | 2016-09-05 10:10 | PD.PROCEDR ---
GI Procedure REFERRING PHYSICIAN BRENT PROCEDURE PERFORMED Incomplete colonoscopy due to poor prep INDICATION FOR PROCEDURE Rectal bleeding PROCEDURE: The procedure, risks and benefits were discussed with Ms. Morales and informed consent was obtained. Anesthesia sedated her with Diprivan. She was placed in the left lateral decubitus position. Colonoscopy: The Pentax videoscope was introduced through the rectum and advanced to sigmoid. Retroflexion was performed in the rectum. Colonic prep was poor with solid stool seen throughout the rectum and sigmoid FINDINGS: What little colonic mucosa seen in the sigmoid and rectum was unremarkable there was too much solid stool and the procedure was terminated no blood was seen during this procedure ESTIMATED BLOOD LOSS: None SPECIMENS REMOVED: None COMPLICATIONS: None IMPRESSION: Incomplete colonoscopy due to poor prep Normal colon otherwise PLAN: Plan for repeat colon prep and repeat colonoscopy in a.m. Continue with current supportive care Kevin Bedoya MD Sep 05, 2016 10:10
[2016-09-05] MEDS ORDERED: PEG (High)/E-LYTE SOLN 4000 ML BTL PO ONE (10:15)
[2016-09-05] MEDS: SODIUM CHLORIDE 0.9% FLUSH 10 ML FLUSH IV FLUSH SCH ×2 (11:02→20:06)
[2016-09-05] MEDS: QUEtiapine FUMARATE 25 MG TAB PO SCH ×3 (11:03→18:00)
[2016-09-05] MEDS: GABAPENTIN 300 MG CAP PO SCH (11:03)
[2016-09-05] MEDS: LACOSAMIDE 100 MG TAB PO SCH ×3 (11:04→18:00)
[2016-09-05] MEDS: RIVASTIGMINE TARTRATE 1.5 MG CAP PO SCH ×2 (11:04→18:00)
[2016-09-05] MEDS: levETIRAcetam 250 MG TAB PO SCH ×4 (11:05→21:00)
[2016-09-05] MEDS: DOCUSATE SODIUM 50 MG/SENNA 8.6 MG TAB PO SCH ×2 (11:06→21:00)
[2016-09-05] MEDS: ALLOPURINOL 100 MG TAB PO SCH (11:06)
--- NOTE | 2016-09-05 11:25 | HHI.PR ---
Subjective Remarks states has abdominal pain when asked however RN states has not complained of pain Objective Vitals Vital Signs Date Time Temp Pulse Resp B/P Pulse Ox O2 Delivery O2 Flow Rate FiO2 09/05/16 10:26 68 16 125/70 97 09/05/16 10:19 68 18 127/70 98 09/05/16 10:12 97.8 71 16 129/70 98 09/05/16 08:00 95.9 83 18 131/75 98 09/05/16 04:41 98.4 88 18 148/70 96 09/05/16 00:01 98.0 89 18 131/63 94 09/04/16 19:54 98.4 80 18 128/61 95 09/04/16 17:55 98.0 80 20 145/68 95 09/04/16 13:54 80 140/73 09/04/16 12:25 79 20 182/77 97 I/O 09/04/16 09/04/16 09/04/16 09/05/16 09/05/16 09/05/16 07:00 15:00 23:00 07:00 15:00 23:00 Intake Total 480 ml 200 ml 1000 ml 150 ml Output Total 900 ml Balance 480 ml 200 ml 100 ml 150 ml Intake Oral 480 ml 200 ml 1000 ml 100 ml IV Total 50 ml Output Urine Total 500 ml Stool Total 400 ml # Voids 2 Result Diagram: 09/04/16 1034 09/04/16 1034 Imaging Last Impressions Abdomen/Pelvis CT 09/02/16 2141 Signed Impressions: Service Date/Time: Friday, September 02, 2016 22:57 - CONCLUSION: 1. Abnormal wall thickening and mild surrounding inflammatory change involving the descending colon and proximal sigmoid colon. Findings are characteristic of a colitis. 2. 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 3. There is a 2.2 cm lesion in the lower pole right kidney. It does not meet criteria for a cyst on this examination and is incompletely characterized. This could represent a hemorrhagic/proteinaceous cyst or a solid renal neoplasm. Ike Peralta MD Objective Remarks Awake and alert and S1-S2 present, regular rate and rhythm Clear lungs bilaterally Abdomen soft, obese, nontender, nondistended, No edema in bilateral lower extremities Procedures None Medications and IVs Current Medications Medications (Trade) Dose Ordered Sig/Lola Route Start Time Stop Time Status Last Admin Ciprofloxacin/ Dextrose 200 ml @ 200 mls/hr Q12H IV 09/03/16 01:00 09/05/16 03:08 (Flagyl 500 Mg Inj) 100 ml @ 100 mls/hr Q8H IV 09/03/16 02:00 09/05/16 11:06 (NS Flush) 2 ml UNSCH PRN IV FLUSH 09/03/16 00:15 (NS Flush) 2 ml BID IV FLUSH 09/03/16 09:00 09/05/16 11:02 (Zofran Inj) 4 mg Q6H PRN IVP 09/03/16 00:15 (Tylenol) 650 mg Q6H PRN PO 09/03/16 00:15 ([place] 5-325 Mg) 1 tab Q4H PRN PO 09/03/16 00:15 (Morphine Inj) 2 mg Q3H PRN IV 09/03/16 00:15 (Tiffanie-Colace) 1 tab BID PO 09/03/16 09:00 09/05/16 11:06 (Milk Of Magnesia Liq) 30 ml Q12H PRN PO 09/03/16 00:15 09/04/16 13:00 (Senokot) 17.2 mg Q12H PRN PO 09/03/16 00:15 (Dulcolax Supp) 10 mg DAILY PRN RECTAL 09/03/16 00:15 (Lactulose Liq) 30 ml DAILY PRN PO 09/03/16 00:15 (Zyloprim) 100 mg DAILY PO 09/03/16 09:00 09/05/16 11:06 (Norvasc) 10 mg DAILY PO 09/03/16 09:00 09/05/16 11:05 (Valium) 5 mg BID PRN PO 09/03/16 00:15 (Vimpat) 100 mg TID PO 09/03/16 09:00 09/05/16 11:04 (Keppra) 250 mg QID PO 09/03/16 09:00 09/05/16 11:05 (Synthroid) 125 mcg DAILY@06 PO 09/03/16 06:00 09/05/16 06:41 (Exelon) 1.5 mg BIDPC PO 09/03/16 09:00 09/05/16 11:04 (Desyrel) 50 mg HS PO 09/03/16 21:00 09/04/16 21:43 (SEROquel) 50 mg TID PO 09/03/16 09:00 09/05/16 11:03 (Neurontin) 600 mg DAILY PO 09/04/16 09:00 09/05/16 11:03 A/P Problem List: (1) BRBPR (bright red blood per rectum) ICD Code: K62.5 Status: Acute (2) Colitis ICD Code: K52.9 Status: Acute (3) Seizure ICD Code: R56.9 Status: Chronic (4) Dementia ICD Code: F03.90 Status: Chronic Assessment and Plan 1. BRBPR: episode of BRBPR noted by staff at [facility], no h/o GI Bleed, not on anticoagulation. Hemoccult+ on exam. Hgb 14, hemodynamically stable, likely secondary to colitis/hemorrhoids. Will monitor Hgb/Hct, which has been stable. 09/04 hemoglobin has been stable. Continue to monitor H&H and consult gastroenterology. 09/05 no further GI bleed. SP Colonoscopy with poor prep. Appreciate GI efforts. Will fu their recommendations. 2. Colitis: CT Abd/Pelvis w/ abnormal wall thickening and surrounding inflammatory changes and descending colon and proximal sigmoid colon, consistent with colitis, images reviewed by me. Continue treatment with Cipro/ Flagyl. Analgesics/antiemetics as needed. 3. Seizure Disorder: Stable. No reported seizure activity. Continue home medications which include Vimpat, Keppra. 4. Dementia: At baseline per Daughter. The new home medications which include Seroquel, trazodone. 5. Hypertension: BP seems to be stable. Continue amlodipine. 6. Hypothyroidism: Continue levothyroxine. 5. DVT Prophylaxis: SCD/Teds. Discharge Planning Pending GI clearance. Beto Randle MD Sep 05, 2016 11:25
[2016-09-05] MEDS: traZODone HCL 50 MG TAB PO SCH (21:00)
[2016-09-06] MEDS: metroNIDAZOLE 500 MG INJ 100 ML IV SCH ×3 (02:47→18:01)
[2016-09-06] MEDS: CIPROFLOXACIN 400 MG PREMIX 200 ML IV SCH ×2 (02:47→12:48)
[2016-09-06] MEDS: LEVOTHYROXINE SODIUM 125 MCG TAB PO SCH (05:55)
[2016-09-06 07:29] LABS: AUTOMATED NEUTROPHIL # 4.5 TH/MM3 (1.8-7.7); BASOPHIL % 0.3 % (0.0-2.0); EOSINOPHIL # 0.2 TH/MM3 (0-0.4); EOSINOPHIL % 2.9 % (0.0-4.0); HEMATOCRIT 42.4 % (35.0-46.0); HEMO FLAGS DIFF FINAL; LYMPH % 28.1 % (9.0-44.0); LYMPHOCYTE # 2.1 TH/MM3 (1.0-4.8); MEAN CELL VOLUME 91.8 FL (80.0-100.0); MEAN CORPUSCULAR HEMOGLOBIN 30.6 PG (27.0-34.0); MEAN CORPUSCULAR HGB CONC 33.3 % (32.0-36.0); MONO % 8.6 % (0.0-8.0); NEUT % 60.1 % (16.0-70.0); PLATELET COUNT 174 TH/MM3 (150-450); RED BLOOD COUNT 4.62 MIL/MM3 (4.00-5.30); RED CELL DISTRIBUTION WIDTH 14.6 % (11.6-17.2); WHITE BLOOD COUNT 7.5 TH/MM3 (4.0-11.0)
[2016-09-06 08:07] LABS: POTASSIUM 3.9 MEQ/L (3.5-5.1)
[2016-09-06 09:56] VITALS: BP 138/72; PULSE 82; RESP 20; TEMP 97.5; O2SAT 97
[2016-09-06] MEDS: levETIRAcetam 250 MG TAB PO SCH ×4 (12:47→19:55)
[2016-09-06] MEDS: DOCUSATE SODIUM 50 MG/SENNA 8.6 MG TAB PO SCH ×2 (12:47→19:55)
[2016-09-06] MEDS: GABAPENTIN 300 MG CAP PO SCH (12:47)
[2016-09-06] MEDS: SODIUM CHLORIDE 0.9% FLUSH 10 ML FLUSH IV FLUSH SCH ×2 (12:47→19:55)
[2016-09-06] MEDS: RIVASTIGMINE TARTRATE 1.5 MG CAP PO SCH ×2 (12:47→18:00)
[2016-09-06] MEDS: ALLOPURINOL 100 MG TAB PO SCH (12:48)
[2016-09-06] MEDS: QUEtiapine FUMARATE 25 MG TAB PO SCH ×3 (12:48→18:00)
[2016-09-06] MEDS: LACOSAMIDE 100 MG TAB PO SCH ×3 (12:48→18:00)
[2016-09-06 12:52] VITALS: BP 128/72; PULSE 76; RESP 18; TEMP 97.6; O2SAT 97
--- NOTE | 2016-09-06 14:24 | HHI.GIFU ---
Subjective Remarks Patient is resting in bed accompanied by her daughter working on the prep. No bleeding today, no N/V or abd pain. (Lucho Leung) Objective Vitals I&O Vital Signs Date Time Temp Pulse Resp B/P Pulse Ox O2 Delivery O2 Flow Rate FiO2 09/06/16 12:52 97.6 76 18 128/72 97 09/06/16 09:56 97.5 82 20 138/72 97 09/05/16 22:43 96.3 72 21 137/71 95 09/05/16 20:14 96.3 75 17 137/73 96 09/05/16 15:13 96.3 70 18 153/73 97 I/O 09/05/16 09/05/16 09/05/16 09/06/16 09/06/16 09/06/16 07:00 15:00 23:00 07:00 15:00 23:00 Intake Total 1000 ml 150 ml Output Total 900 ml Balance 100 ml 150 ml Intake Oral 1000 ml 100 ml IV Total 50 ml Output Urine Total 500 ml Stool Total 400 ml Laboratory Laboratory Tests Test 09/06/16 06:29 White Blood Count 7.5 Red Blood Count 4.62 Hemoglobin 14.1 Hematocrit 42.4 Mean Corpuscular Volume 91.8 Mean Corpuscular Hemoglobin 30.6 Mean Corpuscular Hemoglobin 33.3 Concent Red Cell Distribution Width 14.6 Platelet Count 174 Mean Platelet Volume 8.0 Neutrophils (%) (Auto) 60.1 Lymphocytes (%) (Auto) 28.1 Monocytes (%) (Auto) 8.6 Eosinophils (%) (Auto) 2.9 Basophils (%) (Auto) 0.3 Neutrophils # (Auto) 4.5 Lymphocytes # (Auto) 2.1 Monocytes # (Auto) 0.7 Eosinophils # (Auto) 0.2 Basophils # (Auto) 0.0 CBC Comment DIFF FINAL Differential Comment Sodium Level 135 Potassium Level 3.9 Chloride Level 102 Carbon Dioxide Level 24.0 Anion Gap 9 Blood Urea Nitrogen 20 Creatinine 1.63 Estimat Glomerular Filtration 37 Rate Random Glucose 132 Calcium Level 8.5 Imaging Last Impressions Abdomen/Pelvis CT 09/02/16 5386 Signed Impressions: Service Date/Time: Friday, September 02, 2016 22:57 - CONCLUSION: 1. Abnormal wall thickening and mild surrounding inflammatory change involving the descending colon and proximal sigmoid colon. Findings are characteristic of a colitis. 2. 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 3. There is a 2.2 cm lesion in the lower pole right kidney. It does not meet criteria for a cyst on this examination and is incompletely characterized. This could represent a hemorrhagic/proteinaceous cyst or a solid renal neoplasm. Ike Peralta MD Physical Exam HEENT: normocephalic; atraumatic; no jaundice. NECK: Neck is supple, no JVD, no lymphadenopathy. CHEST: Chest is clear to auscultation and percussion. CARDIAC: Regular rate and rhythm ABDOMEN: Soft, nondistended, nontender; no hepatosplenomegaly; bowel sounds are present in all four quadrants. EXTREMITIES: No clubbing, cyanosis, or edema. SKIN: Normal; no rash; no jaundice. CODING COORDINATOR: Alert and oriented to self (Lucho Leung) Assessment and Plan Plan ASSESSMENT - BRBPR - 1 x episode BRBPR seen at [facility] during diaper change. No bleeding today H&H stable, daughter in the room, working on the prep with patient. Had incomplete colonoscopy on (09/05/16) and was suppose to have repeat today but wasn't prepd so this moved to tomorrow. - Dementia- base line PLAN - Clear liquids - colonoscopy in am - NPO after midnight - Discussed with nurse that patient needs special ed assistant with the prep and it has to be offered to her - monitor HH - further recommendations to follow This pt seen by myself and Dr Bedoya and this note is written on his behalf ( Lucho Leung) Physician Comments Patient seen and examined Agree with above Continue with current supportive care Monitor labs Colonoscopy tomorrow (Kevin Bedoya MD) Lucho Leung Sep 06, 2016 14:24 Kevin Bedoya MD Sep 06, 2016 21:26
--- NOTE | 2016-09-06 15:03 | HHI.PR ---
Subjective Remarks daughter is at bedside denies cp/sob c/o diarrhea as per RN did not drink [place] last night denies abdominal pain denies further GI bleeding Objective Vitals Vital Signs Date Time Temp Pulse Resp B/P Pulse Ox O2 Delivery O2 Flow Rate FiO2 09/06/16 12:52 97.6 76 18 128/72 97 09/06/16 09:56 97.5 82 20 138/72 97 09/05/16 22:43 96.3 72 21 137/71 95 09/05/16 20:14 96.3 75 17 137/73 96 09/05/16 15:13 96.3 70 18 153/73 97 I/O 09/05/16 09/05/16 09/05/16 09/06/16 09/06/16 09/06/16 07:00 15:00 23:00 07:00 15:00 23:00 Intake Total 1000 ml 150 ml Output Total 900 ml Balance 100 ml 150 ml Intake Oral 1000 ml 100 ml IV Total 50 ml Output Urine Total 500 ml Stool Total 400 ml Result Diagram: 09/06/16 0629 09/06/16 0629 Imaging Last Impressions Abdomen/Pelvis CT 09/02/162140 Signed Impressions: Service Date/Time: Friday, September 02, 2016 22:57 - CONCLUSION: 1. Abnormal wall thickening and mild surrounding inflammatory change involving the descending colon and proximal sigmoid colon. Findings are characteristic of a colitis. 2. 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 3. There is a 2.2 cm lesion in the lower pole right kidney. It does not meet criteria for a cyst on this examination and is incompletely characterized. This could represent a hemorrhagic/proteinaceous cyst or a solid renal neoplasm. Ike Peralta MD Objective Remarks Awake and alert and S1-S2 present, regular rate and rhythm Clear lungs bilaterally Abdomen soft, obese, nontender, nondistended, No edema in bilateral lower extremities Procedures None Medications and IVs Current Medications Medications (Trade) Dose Ordered Sig/Lola Route Start Time Stop Time Status Last Admin Ciprofloxacin/ Dextrose 200 ml @ 200 mls/hr Q12H IV 09/03/16 01:00 09/06/16 12:48 (Flagyl 500 Mg Inj) 100 ml @ 100 mls/hr Q8H IV 09/03/16 02:00 09/06/16 12:48 (NS Flush) 2 ml UNSCH PRN IV FLUSH 09/03/16 00:15 (NS Flush) 2 ml BID IV FLUSH 09/03/16 09:00 09/06/16 12:47 (Zofran Inj) 4 mg Q6H PRN IVP 09/03/16 00:15 (Tylenol) 650 mg Q6H PRN PO 09/03/16 00:15 ([place] 5-325 Mg) 1 tab Q4H PRN PO 09/03/16 00:15 (Morphine Inj) 2 mg Q3H PRN IV 09/03/16 00:15 (Tiffanie-Colace) 1 tab BID PO 09/03/16 09:00 09/06/16 12:47 (Milk Of Magnesia Liq) 30 ml Q12H PRN PO 09/03/16 00:15 09/04/16 13:00 (Senokot) 17.2 mg Q12H PRN PO 09/03/16 00:15 (Dulcolax Supp) 10 mg DAILY PRN RECTAL 09/03/16 00:15 (Lactulose Liq) 30 ml DAILY PRN PO 09/03/16 00:15 (Zyloprim) 100 mg DAILY PO 09/03/16 09:00 09/06/16 12:48 (Norvasc) 10 mg DAILY PO 09/03/16 09:00 09/06/16 12:47 (Valium) 5 mg BID PRN PO 09/03/16 00:15 (Vimpat) 100 mg TID PO 09/03/16 09:00 09/06/16 14:21 (Keppra) 250 mg QID PO 09/03/16 09:00 09/06/16 14:20 (Synthroid) 125 mcg DAILY@06 PO 09/03/16 06:00 09/05/16 06:41 (Exelon) 1.5 mg BIDPC PO 09/03/16 09:00 09/06/16 12:47 (Desyrel) 50 mg HS PO 09/03/16 21:00 09/04/16 21:43 (SEROquel) 50 mg TID PO 09/03/16 09:00 09/06/16 14:21 (Neurontin) 600 mg DAILY PO 09/04/16 09:00 09/06/16 12:47 A/P Problem List: (1) BRBPR (bright red blood per rectum) ICD Code: K62.5 Status: Acute (2) Colitis ICD Code: K52.9 Status: Acute (3) Seizure ICD Code: R56.9 Status: Chronic (4) Dementia ICD Code: F03.90 Status: Chronic (5) CKD (chronic kidney disease), stage III ICD Code: N18.3 Status: Chronic (6) GI bleed ICD Code: K92.2 Status: Resolved (7) DEVIN (acute kidney injury) ICD Code: N17.9 Status: Acute Assessment and Plan 1. BRBPR: episode of BRBPR noted by staff at [facility], no h/o GI Bleed, not on anticoagulation. Hemoccult+ on exam. Hgb 14, hemodynamically stable, likely secondary to colitis/hemorrhoids. Will monitor Hgb/Hct, which has been stable. 09/04 hemoglobin has been stable. Continue to monitor H&H and consult gastroenterology. 09/05 no further GI bleed. SP Colonoscopy with poor prep. Appreciate GI efforts. Will fu their recommendations. 09/06 Patient did not drink prep. Colonoscopy will be done in am. 2. Colitis: CT Abd/Pelvis w/ abnormal wall thickening and surrounding inflammatory changes and descending colon and proximal sigmoid colon, consistent with colitis, images reviewed by me. Continue treatment with Cipro/ Flagyl. Analgesics/antiemetics as needed. 3. Seizure Disorder: Stable. No reported seizure activity. Continue home medications which include Vimpat, Keppra. 4. Dementia: At baseline per Daughter. The new home medications which include Seroquel, trazodone. 5. Hypertension: BP seems to be stable. Continue amlodipine. 6. Hypothyroidism: Continue levothyroxine. 7. DEVIN on CKD atge III. Upon review of records baseline creatinine 1.6. Creatinine on admission 1.8. Devin likely due to prerenal azotemia due to dehydration. Creatinine back to baseline after IV fluids. 5. DVT Prophylaxis: SCD/Teds. Discharge Planning Pending colonoscopy in am and GI clearance. Problem Qualifiers (1) GI bleed: Qualified Code: K92.2 - Gastrointestinal hemorrhage, unspecified gastrointestinal hemorrhage type Beto Randle MD Sep 06, 2016 15:03
[2016-09-06 16:00] VITALS: BP 141/68; PULSE 93; RESP 19; TEMP 96; O2SAT 96
[2016-09-06] MEDS: traZODone HCL 50 MG TAB PO SCH (19:55)
[2016-09-06 20:00] VITALS: BP 132/68; PULSE 90; RESP 16; TEMP 97.4; O2SAT 94
[2016-09-06] MEDS ORDERED: LACTATED RINGER'S 1000 ML IV PRN (21:45)
[2016-09-06] MEDS ORDERED: POVIDONE IODINE 5% (ANTISEPSIS KIT) 4 APPLICATIONS EACH NARE PRN (21:45)
[2016-09-06] MEDS ORDERED: METOPROLOL TARTRATE 25 MG TAB PO PRN (21:45)
[2016-09-06] MEDS ORDERED: SODIUM CHLORID 0.9% 500 ML IV PRN (21:45)
[2016-09-06] MEDS ORDERED: CHLORHEXIDINE GLUCONATE 2 % 1 PACK (2 CLOTHS) TOPICAL PRN (21:45)
[2016-09-06] MEDS ORDERED: INSULIN HUMAN REGULAR 1,000 UNITS/10 ML VIAL SQ PRN (21:45)
[2016-09-07] VITALS: BP 128/76; PULSE 103; RESP 16; TEMP 98.1; O2SAT 95
[2016-09-07] MEDS: DIAZEPAM 5 MG TAB PO PRN ×2 (00:27→18:20)
[2016-09-07] MEDS: CIPROFLOXACIN 400 MG PREMIX 200 ML IV SCH ×2 (00:28→13:42)
[2016-09-07] MEDS: metroNIDAZOLE 500 MG INJ 100 ML IV SCH ×3 (01:08→18:20)
[2016-09-07 03:35] VITALS: BP 100/70; PULSE 90; RESP 17; TEMP 97; O2SAT 94
--- NOTE | 2016-09-07 05:02 | EKG ---
Date Performed: 09/06/2016 Time Performed: 22:01:50 PTAGE: 76 years EKG: Sinus rhythm WITH FIRST DEGREE AV BLOCK LEFT BUNDLE BRANCH BLOCK ABNORMAL ECG No significant change from prior el ectrocardiogram. PREVIOUS TRACING : 05/06/2015 18.41 DOCTOR: Carson Arndt Interpretating Date/Time 09/07/2016 05:01:52
[2016-09-07] MEDS: LEVOTHYROXINE SODIUM 125 MCG TAB PO SCH (05:18)
[2016-09-07 07:57] VITALS: BP 147/79; PULSE 76; RESP 19; TEMP 97.8; O2SAT 100
[2016-09-07] MEDS: DOCUSATE SODIUM 50 MG/SENNA 8.6 MG TAB PO SCH ×2 (08:35→20:47)
[2016-09-07] MEDS: RIVASTIGMINE TARTRATE 1.5 MG CAP PO SCH ×2 (08:35→20:47)
[2016-09-07] MEDS: levETIRAcetam 250 MG TAB PO SCH ×4 (08:35→20:47)
[2016-09-07] MEDS: ALLOPURINOL 100 MG TAB PO SCH (08:35)
[2016-09-07] MEDS: GABAPENTIN 300 MG CAP PO SCH (08:35)
[2016-09-07] MEDS: SODIUM CHLORIDE 0.9% FLUSH 10 ML FLUSH IV FLUSH SCH ×2 (08:37→20:47)
[2016-09-07] MEDS: QUEtiapine FUMARATE 25 MG TAB PO SCH ×3 (08:40→18:19)
[2016-09-07] MEDS ORDERED: DO NOT ADM ANY ANTICOAGULANT DRUGS PRN (09:38)
[2016-09-07] MEDS ORDERED: PROPOFOL 200 MG/20 ML AMP IV ONE (09:50)
--- NOTE | 2016-09-07 09:58 | PD.PROCEDR ---
GI Procedure REFERRING PHYSICIAN BRENT AYALA PERFORMED Colonoscopy with biopsy INDICATION FOR PROCEDURE Rectal bleeding PROCEDURE: The procedure, risks and benefits were discussed with Ms. Morales and informed consent was obtained. Anesthesia sedated her with Diprivan. She was placed in the left lateral decubitus position. Colonoscopy: The Pentax videoscope was introduced through the rectum and advanced to cecum where the ileocecal valve and appendiceal orifice were identified. Retroflexion was performed in the rectum. Colonic prep was good FINDINGS: Colonic withdrawal time greater than 6 minutes as the scope was slowly withdrawn colonic mucosa was carefully inspected the patient was noted to have some patchy erythema in the sigmoid this is of unclear significance biopsies were taken for further evaluation otherwise colonic mucosa was unremarkable and within normal limits the patient was also noted to have moderate diverticulosis of the sigmoid region retroflexion in the rectum was unremarkable cells rectal examination ESTIMATED BLOOD LOSS: None SPECIMENS REMOVED: Sigmoid biopsies COMPLICATIONS: None IMPRESSION: Sigmoid erythema of unclear significance Sigmoid diverticulosis PLAN: Await biopsies Advance diet Continue supportive care Monitor labs Kevin Bedoya MD Sep 07, 2016 09:58
[2016-09-07] MEDS: LACOSAMIDE 100 MG TAB PO SCH ×3 (10:35→18:20)
[2016-09-07 11:55] VITALS: BP 143/79; PULSE 75; RESP 18; TEMP 97.4; O2SAT 97
--- NOTE | 2016-09-07 13:35 | HHI.PR ---
Subjective Remarks Patient is unable to give history. Daughter is at bedside in case discussed with the daughter. I am seeing her status post colonoscopy. She did well with the procedure and has recovered well. Procedure note reveals some diverticulosis which may be a source of bleeding. Erythema is present of unknown significance, also. Awaiting clearance from gastroenterology. Patient shows no further signs of active bleeding and may be a candidate for discharge soon. Objective Vital Signs Date Time Temp Pulse Resp B/P Pulse Ox O2 Delivery O2 Flow Rate FiO2 09/07/16 11:55 97.4 75 18 143/79 97 09/07/16 10:01 69 24 130/92 96 Nasal Cannula 4 09/07/16 09:45 69 21 104/61 100 Nasal Cannula 4 09/07/16 09:40 97.6 69 16 106/57 100 Nasal Cannula 4 09/07/16 07:57 97.8 76 19 147/79 100 09/07/16 03:35 97.0 90 17 100/70 94 09/07/16 00:00 98.1 103 16 128/76 95 09/06/16 20:00 97.4 90 16 132/68 94 09/06/16 16:00 96.0 93 19 141/68 96 I/O 09/06/16 09/06/16 09/06/16 09/07/16 09/07/16 09/07/16 06:59 14:59 22:59 06:59 14:59 22:59 Intake Total 720 ml 0 ml Balance 720 ml 0 ml Intake Oral 720 ml 0 ml # Voids 1 1 # Bowel Movements 2 1 Result Diagram: 09/06/1629 09/06/16628 Objective Remarks GENERAL: NAD, A&Ox0 HEAD: Normocephalic. NECK: Supple, trachea midline. No lymphadenopathy. EYES: No scleral icterus. No injection or drainage. CARDIOVASCULAR: Regular rate and rhythm without murmurs, gallops, or rubs. RESPIRATORY: Breath sounds equal bilaterally. No accessory muscle use. GASTROINTESTINAL: Abdomen soft, non-tender, nondistended. MUSCULOSKELETAL: No cyanosis, or edema. SKIN: Warm and dry. NEURO: No focal neurological deficitis. A/P Problem List: (1) DEVIN (acute kidney injury) ICD Code: N17.9 (2) CKD (chronic kidney disease), stage III ICD Code: N18.3 (3) GI bleed ICD Code: K92.2 Assessment and Plan Assessment and Plan 76-year-old female with underlying dementia admitted secondary to GI bleed GI bleed Colitis No significant blood loss No further signs of bleeding Status post colonoscopy GI following Seizure disorder Continue Vipmat and Keppra Monitor for seizure activity No signs of seizure Dementia Continue Seroquel and trazodone Supportive care Currently at baseline Hypertension Stable Continue amlodipine Hypothyroidism Follow as an outpatient Continue levothyroxine Acute kidney injury on chronic kidney disease stage III DEVIN Resolved Follows in outpatient DVT prophylaxis SCDs given bleeding Discharge Planning Pending GI clearance. Problem Qualifiers (1) GI bleed: Qualified Code: K92.2 - Gastrointestinal hemorrhage, unspecified gastrointestinal hemorrhage type Vince Eddy MD Sep 07, 2016 13:35
--- NOTE | 2016-09-07 14:45 | HHI.DS ---
Discharge Summary Admission Date Sep 03, 2016 at 00:13 Discharge Date: Sep 07, 2016 Admitting Diagnosis GI Bleed, colitis (1) BRBPR (bright red blood per rectum) ICD Code: K62.5 Diagnosis: Principal (2) Colitis ICD Code: K52.9 Diagnosis: Principal (3) Seizure ICD Code: R56.9 Diagnosis: Secondary (4) Dementia ICD Code: F03.90 Diagnosis: Secondary (5) CKD (chronic kidney disease), stage III ICD Code: N18.3 Diagnosis: Secondary (6) GI bleed ICD Code: K92.2 Diagnosis: Secondary (7) DEVIN (acute kidney injury) ICD Code: N17.9 Diagnosis: Secondary Procedures None Brief History - From Admission This is a 76-year-old female with a PMH of Dementia, HTN, Hyperlipidemia, Seizure Disorder and h/o CVA who was sent to the ER from [facility] for episode of BRBPR. Per report, pt was having her diaper changed when staff noted one episode of BRBPR. No h/o GI Bleed, not on anticoagulation. Pt poor historian, however no complaints at this time. On arrival, BP 152/70, HR 75, O2 sat 97% on RA, Afebrile. CBC unremarkable, Hemoglobin 14.2. Creatinine 1.85, previously 1.62 on 05/07/15. INR 1.0. UA negative. Hemoccult +. CT Abd/ Pelvis w/ evidence of colitis. CBC/BMP: 09/06/16 0629 09/06/16 0629 Significant Findings Laboratory Tests Test 09/06/16 06:29 Monocytes (%) (Auto) 8.6 % (0.0-8.0) Sodium Level 135 MEQ/L (136-145) Blood Urea Nitrogen 20 MG/DL (7-18) Creatinine 1.63 MG/DL (0.50-1.00) Estimat Glomerular Filtration 37 ML/MIN (>89) Rate Random Glucose 132 MG/DL (74-106) PE at Discharge GENERAL: NAD, A&Ox0 HEAD: Normocephalic. NECK: Supple, trachea midline. No lymphadenopathy. EYES: No scleral icterus. No injection or drainage. CARDIOVASCULAR: Regular rate and rhythm without murmurs, gallops, or rubs. RESPIRATORY: Breath sounds equal bilaterally. No accessory muscle use. GASTROINTESTINAL: Abdomen soft, non-tender, nondistended. MUSCULOSKELETAL: No cyanosis, or edema. SKIN: Warm and dry. NEURO: No focal neurological deficitis. Hospital Course Mrs. Morales is a 76-year-old female. She has underlying end-stage dementia and chronic kidney disease stage III. She was admitted secondary to acute GI bleed with right red blood per rectum. She was admitted here for monitoring and workup. No blood thinners were provided. She has had resolution of her bleeding. Despite leading hemoglobin did not drop significantly. Hemoglobin is greater than 14.0 today. She had a colonoscopy which showed diverticulosis and some evidence of colitis (colitis was also seen on CT scan). Etiology of her colitis does not appear to be infectious and may be reactive or viral. She had a transient acute kidney injury while here but has trended back towards her baseline numbers for her chronic kidney disease. Etiology for the kidney disruption may have been secondary to dehydration which would be related to colitis. At this point given no active GI bleeding and no signs of infection, she is medically stable for discharge to [facility]. Medically clear for discharge to [facility] today. Pt Condition on Discharge: Stable Discharge Disposition: Discharge to SNF Discharge Time: <= 30 minutes Discharge Instructions DIET: Follow Instructions for: Heart Healthy Diet Activities you can perform: Regular-No Restrictions Follow up Referrals: PCP Follow-up - 2 Weeks Continued Medications: Allopurinol (Allopurinol) 100 Mg Tab 100 MG PO DAILY Gout #30 Ref 0 TAB Amlodipine (Amlodipine) 10 Mg Tab 10 MG PO DAILY Blood Pressure Management #30 Ref 0 TAB Cranberry Conc/C/Bacill Coag (Cranberry Tablet) 1 Each Tablet 5 MG PO BID Diazepam (Diazepam) 5 Mg Tab 5 MG PO BID PRN AGITATION Ref 0 TAB Docusate Sodium (Docusate Sodium) 100 Mg Cap 100 MG PO BID PRN CONSTIPATION #60 Ref 0 CAP Gabapentin (Gabapentin) 600 Mg Tab 600 MG PO TID #90 Ref 0 TAB Guaifenesin/Dextromethorphan Liq (Guaifenesin-Dm Liq) 100-10 Mg/5 Ml Syrp 10 ML PO Q6HR PRN COUGH Hydroxyzine HCl (Hydroxyzine HCl) 25 Mg Tab 25 MG PO QID PRN ITCHING Ref 0 TAB Hypromellose Opth Drops (Genteal Mild To Moderate Opth Drops) 0.3% Drops 1 DROP EACH EYE BID PRN DRY EYE #15 Ref 0 ML Lacosamide (Vimpat) 100 Mg Tab 100 MG PO TID Control Seizures #60 Ref 0 TAB Levetiracetam (Levetiracetam) 250 Mg Tab 250 MG PO QID Control Seizures #60 Ref 0 TAB Levothyroxine (Synthroid) 125 Mcg Tab 125 MCG PO DAILY Thyroid #30 Ref 0 TAB Ondansetron (Zofran) 4 Mg Tab 4 MG PO Q8HR PRN NAUSEA OR VOMITING Ref 0 TAB Quetiapine (Quetiapine) 50 Mg Tab 50 MG PO TID #60 Ref 0 TAB Rivastigmine (Rivastigmine) 1.5 Mg Cap 1.5 MG PO BIDPC Dementia #60 Ref 0 CAP Tacrolimus Topical 1% (Protopic Topical 1%) 0.1 % Oint 1 APPLIC TOPICAL BID PRN RASH #1 Ref 0 TUBE Trazodone (Trazodone) 50 Mg Tab 50 MG PO HS Control Depression #30 Ref 0 TAB Vince Eddy MD Sep 07, 2016 14:45
[2016-09-07 16:00] VITALS: BP 167/85; PULSE 88; RESP 18; TEMP 95.5; O2SAT 97
[2016-09-07] MEDS ORDERED: TACROLIMUS TOPICAL PRN (17:00)
[2016-09-07] MEDS ORDERED: ARTIFICIAL TEARS OPTH SOLN 15 ML BTL EACH EYE PRN (17:00)
[2016-09-07 20:45] VITALS: BP 142/73; PULSE 76; RESP 16; TEMP 97.5; O2SAT 95
[2016-09-07] MEDS: traZODone HCL 50 MG TAB PO SCH (20:47)
[2016-09-08 00:36] VITALS: BP 122/66; PULSE 78; RESP 16; TEMP 98; O2SAT 95
[2016-09-08] MEDS: CIPROFLOXACIN 400 MG PREMIX 200 ML IV SCH (01:46)
[2016-09-08] MEDS: metroNIDAZOLE 500 MG INJ 100 ML IV SCH ×2 (03:14→08:44)
[2016-09-08] MEDS: LEVOTHYROXINE SODIUM 125 MCG TAB PO SCH (05:52)
[2016-09-08 07:10] LABS: HEMATOCRIT 40.6 % (35.0-46.0); MEAN CELL VOLUME 90.4 FL (80.0-100.0); MEAN CORPUSCULAR HEMOGLOBIN 30.7 PG (27.0-34.0); MEAN CORPUSCULAR HGB CONC 33.9 % (32.0-36.0); PLATELET COUNT 151 TH/MM3 (150-450); RED BLOOD COUNT 4.49 MIL/MM3 (4.00-5.30); RED CELL DISTRIBUTION WIDTH 14.9 % (11.6-17.2); REVIEW FLAG FINAL; WHITE BLOOD COUNT 7.6 TH/MM3 (4.0-11.0)
[2016-09-08 08:00] VITALS: BP 114/63; PULSE 78; RESP 18; TEMP 97.5; O2SAT 97
[2016-09-08] MEDS: SODIUM CHLORIDE 0.9% FLUSH 10 ML FLUSH IV FLUSH SCH (08:44)
[2016-09-08] MEDS: GABAPENTIN 300 MG CAP PO SCH (08:45)
[2016-09-08] MEDS: LACOSAMIDE 100 MG TAB PO SCH (08:45)
[2016-09-08] MEDS: RIVASTIGMINE TARTRATE 1.5 MG CAP PO SCH (08:45)
[2016-09-08] MEDS: levETIRAcetam 250 MG TAB PO SCH (08:45)
[2016-09-08] MEDS: ALLOPURINOL 100 MG TAB PO SCH (08:45)
[2016-09-08] MEDS: DOCUSATE SODIUM 50 MG/SENNA 8.6 MG TAB PO SCH (08:45)
[2016-09-08] MEDS: QUEtiapine FUMARATE 25 MG TAB PO SCH (08:45)
--- NOTE | 2016-09-08 10:48 | HHI.PR ---
Subjective Remarks Discharge held yesterday secondary to nausea and vomiting. This has resolved overnight. Patient is doing well this morning and has tolerated her breakfast and pills. Medically she is stable now and cleared for discharge today. Objective Vital Signs Date Time Temp Pulse Resp B/P Pulse Ox O2 Delivery O2 Flow Rate FiO2 09/08/16 08:00 97.5 78 18 114/63 97 09/08/16 00:36 98.0 78 16 122/66 95 09/07/16 22:08 21 09/07/16 20:45 97.5 76 16 142/73 95 09/07/16 16:00 95.5 88 18 167/85 97 09/07/16 11:55 97.4 75 18 143/79 97 I/O 09/07/16 09/07/16 09/07/16 09/08/16 09/08/16 09/08/16 07:00 15:00 23:00 07:00 15:00 23:00 Intake Total 0 ml 584 ml 120 ml 60 ml Balance 0 ml 584 ml 120 ml 60 ml Intake Oral 0 ml 480 ml 120 ml 60 ml IV Total 104 ml # Voids 1 3 0 3 # Bowel Movements 1 3 0 1 Result Diagram: 09/08/16 0611 09/06/16 0629 Objective Remarks GENERAL: NAD, A&Ox0 HEAD: Normocephalic. NECK: Supple, trachea midline. No lymphadenopathy. EYES: No scleral icterus. No injection or drainage. CARDIOVASCULAR: Regular rate and rhythm without murmurs, gallops, or rubs. RESPIRATORY: Breath sounds equal bilaterally. No accessory muscle use. GASTROINTESTINAL: Abdomen soft, non-tender, nondistended. MUSCULOSKELETAL: No cyanosis, or edema. SKIN: Warm and dry. NEURO: No focal neurological deficitis. A/P Problem List: (1) DEVIN (acute kidney injury) ICD Code: N17.9 (2) CKD (chronic kidney disease), stage III ICD Code: N18.3 (3) GI bleed ICD Code: K92.2 Assessment and Plan Assessment and Plan 76-year-old female with underlying dementia admitted secondary to GI bleed. Episode of nausea and vomiting yesterday help patient's discharge. This has resolved today. Patient medically cleared for discharge today. GI bleed Colitis No significant blood loss No further signs of bleeding Status post colonoscopy GI following Seizure disorder Continue Vipmat and Keppra Monitor for seizure activity No signs of seizure Dementia Continue Seroquel and trazodone Supportive care Currently at baseline Hypertension Stable Continue amlodipine Hypothyroidism Follow as an outpatient Continue levothyroxine Acute kidney injury on chronic kidney disease stage III DEVIN Resolved Follows in outpatient DVT prophylaxis SCDs given bleeding Discharge Planning Discharge home today. Problem Qualifiers (1) GI bleed: Qualified Code: K92.2 - Gastrointestinal hemorrhage, unspecified gastrointestinal hemorrhage type Vince Eddy MD Sep 08, 2016 10:48 am
[2016-09-08 12:00] VITALS: BP 129/65; PULSE 78; RESP 18; TEMP 97.4; O2SAT 93
== END 2016-09-08 15:13 | DRG 392 ==
LOC: NEPE 21:07 → NEDA 09-03 00:13 → NEPGCP 09-03 01:20 → N06A 09-06 15:34
PROVIDERS: ADMIT Hospitalist; ATTEND Hospitalist
PROC: 0DJD8ZZ Inspection of Lower Intestinal Tract, Via Natural or Artificial Opening Endoscopic (ICD-10-PCS; principal; 2016-09-05 09:01)
PROC: 0DBN8ZX Excision of Sigmoid Colon, Via Natural or Artificial Opening Endoscopic, Diagnostic (ICD-10-PCS; 2016-09-07)
DX: K52.9 Noninfective gastroenteritis and colitis, unspecified (principal); N17.9 Acute kidney failure, unspecified; K62.5 Hemorrhage of anus and rectum; G30.9 Alzheimer's disease, unspecified; F02.80 Dementia in other diseases classified elsewhere, unspecified severity, without behavioral disturbance, psychotic disturbance, mood disturbance, and anxiety; E86.0 Dehydration; G40.909 Epilepsy, unspecified, not intractable, without status epilepticus; N18.3 Chronic kidney disease, stage 3 (moderate); I12.9 Hypertensive chronic kidney disease with stage 1 through stage 4 chronic kidney disease, or unspecified chronic kidney disease; R11.2 Nausea with vomiting, unspecified; E78.5 Hyperlipidemia, unspecified; Z96.652 Presence of left artificial knee joint; E03.9 Hypothyroidism, unspecified; Z86.73 Personal history of transient ischemic attack (TIA), and cerebral infarction without residual deficits; K57.30 Diverticulosis of large intestine without perforation or abscess without bleeding; E66.9 Obesity, unspecified; Z68.38 Body mass index [BMI] 38.0-38.9, adult
CPT/HCPCS: 74176; 76937; 80048; 80053; 81001; 83690; 85025; 85027; 85610; 85652; 85730; 86140; 86850; 86900; 86901; 88305; 93005; J0744; J2405; P9612